=== PATIENT | female | born 1990 | race Caucasian/White ===

== ENCOUNTER 2019-11-16 16:51 | Emergency (ER) | payer OTHER ==
[~2019-11-16] VITALS: Ht 165.1 cm; Wt 79.4 kg
[~2019-11-16 16:51] MED LIST: BRINTELLIX5 MG PO; CLEOCIN HCL150 MG PO; DOXYCYCLINE 10100 MG PO; HYDROCODONE-AP1 EAC6 PO; MEDROLDOSEPACK PO; NAPROSYN500 MG PO; NOHOMEMEDICATIONS; NORCO 5-325 TA1 EACH PO; PRAZOSIN HCL5 MG PO; ROBAXIN500 MG PO; SEROQUEL 50 MG50 MG PO; TRAMADOL 50 MG50 MG PO; TRILEPTAL300 MG; VISTARIL 25 MG25 M1 PO; ZYPREXA5 MG PO
[2019-11-16 18:30] LABS: HEMATOCRIT 36.5 % (37.0-47.0); HEMOGLOBIN 12.2 gm/dL (12.0-15.0); MCH 27.9 pg (26.0-34.0); MCHC 33.5 g/dL (28.0-37.0); MCV 83.3 fL (80.0-100.0); RBC 4.38 mil/uL (4.20-5.00); RDW 14.7 % (10.5-14.5); WBC 10.9 thou/uL (4.0-11.0)
[2019-11-16 18:39] LABS: CALCIUM 8.8 mg/dL (8.5-10.1); CREATININE 0.8 mg/dL (0.6-1.0); POTASSIUM 3.6 mmol/L (3.5-5.1); SALICYLATE 4.3 mg/dL (2.8-20.0)
[2019-11-16 19:40] LABS: URINE BILIRUBIN NEGATIVE (Negative); URINE BLOOD 2+ (Negative); URINE CLARITY CLOUDY; URINE COLOR YELLOW; URINE GLUCOSE-RANDOM* NEGATIVE (Negative); URINE KETONES TRACE (Negative); URINE LEUKOCYTES-REFLEX TRACE (Negative); URINE PROTEIN (DIPSTICK) TRACE (Negative)
[2019-11-16 19:41] LABS: URINE NITRITE-REFLEX POSITIVE (Negative)
[2019-11-16 19:55] LABS: AMP/METHAMP POSITIVE (Negative); BARBITURATES Negative (Negative); BENZODIAZEPINES POSITIVE (Negative); COCAINE Negative (Negative); METHADONE Negative (Negative); OPIATES Negative (Negative); PCP Negative (Negative)
[2019-11-16 20:09] LABS: AMORPHOUS URATES Few /LPF (None Seen); CASTS None Seen /LPF (None Seen); SQUAMOUS None Seen /LPF (0-3); URINE RBC 0-2 Rare /HPF (0-2)
[2019-11-16 20:10] LABS: URINE WBC-REFLEX 0-5 Rare /HPF (0-5)
[2019-11-17 18:53] VITALS: BP 121/69
== END 2019-11-17 18:54 | disposition still patient (30) ==
LOC: ER 16:51
PROVIDERS: Emergency Medicine
DX: F23 Brief psychotic disorder (principal); F15.10 Other stimulant abuse, uncomplicated; N39.0 Urinary tract infection, site not specified; M25.521 Pain in right elbow; R41.82 Altered mental status, unspecified; F41.9 Anxiety disorder, unspecified; M06.9 Rheumatoid arthritis, unspecified; Z90.89 Acquired absence of other organs; Z79.899 Other long term (current) drug therapy; Z79.2 Long term (current) use of antibiotics